=== PATIENT | male | born 1970 | race Hispanic/Latino ===

== ENCOUNTER 2018-09-08 22:02 | Emergency (ER) | payer BC ==
[~2018-09-08] VITALS: Ht 175.3 cm; Wt 133.8 kg
[2018-09-08] MEDS ORDERED: TETANUS/DIPHTHERIA TOX ADULT 0.5 ML SYR IM STA (22:23)
--- NOTE | 2018-09-08 22:59 | Diagnostic Imaging Report ---
EXAMINATION: Head CT without contrast. HISTORY:Status post fall. COMPARISON:None. TECHNIQUE: Multidetector axial images were obtained from the foramen magnum to the vertex without contrast. The images were reconstructed using brain and bone algorithms. Thin section brain images were reformatted into coronal and sagittal planes. Dose modulation, iterative reconstruction, and/or weight based adjustment of the mA/kV was utilized to reduce the radiation dose to as low as reasonably achievable. Intravenous contrast: None IMAGE QUALITY: Acceptable. FINDINGS: Skull/scalp: Mild left supraorbital soft tissue edema/hematoma. No soft tissue emphysema or radiopaque foreign body. No acute depressed or displaced calvarial fracture. Nonspecific punctate radiopaque density in left parietal scalp. Parenchyma: No abnormal density. No acute hemorrhage, mass or acute major vascular territorial infarct. Arteries: No density suggestive of thrombosis. Dural sinuses: No abnormal density suggestive of thrombosis. Ventricles: No hydrocephalus or displacement. Extra-axial spaces: No abnormal density. Brain volume: Mild generalized cerebral volume loss. Craniocervical junction: No mass, Chiari malformation, or basilar invagination. Sella: No mass. Paranasal/mastoid sinuses: Small polyp/retention cyst in right maxillary sinus. IMPRESSION: 1. Mild left supraorbital soft tissue edema/hematoma. No acute fracture. 2. No acute posttraumatic intracranial abnormality. 3. Mild generalized cerebral volume loss, advanced for patient's given age. Signed by: Dr. Sagrario Bunch M.D. on 09/08/2018 10:55 PM
== END 2018-09-08 23:45 | disposition home or self-care (01) ==
LOC: FSED 22:02
DX: S00.83XA Contusion of other part of head, initial encounter (principal); W01.0XXA Fall on same level from slipping, tripping and stumbling without subsequent striking against object, initial encounter; Y92.488 Other paved roadways as the place of occurrence of the external cause; F10.120 Alcohol abuse with intoxication, uncomplicated
CPT/HCPCS: 70450; 90714; 99283